=== PATIENT | male | born 1955 | race Caucasian/White ===

== ENCOUNTER 2018-03-17 07:23 | Day surgery (SDC) | payer BC ==
[~2018-03-17] VITALS: Ht 175.3 cm; Wt 81.6 kg
[2018-03-17] VITALS (8 sets, daily range): BP systolic 110–135; BP diastolic 55–95
--- NOTE | 2018-03-17 06:35 | Anethesia Preoperative Eval ---
Anesthesia Pre-op PMH/ROS General Date of Evaluation: Mar 17, 2018 Time of Evaluation: 06:33 Anesthesiologist: ivonne ASA Score: ASA 3 Mallampati Score Class I : Soft palate, uvula, fauces, pillars visible Class II: Soft palate, uvula, fauces visible Class III: Soft palate, base of uvula visible Class IV: Only hard plate visible Mallampati Classification: Class II Surgeon: holden Diagnosis: esophageal cancer Surgical Procedure: eus Anesthesia History: none Social History: current smoker Family History: no anesthesia problems Allergies: Coded Allergies: No Known Allergies (Unverified , 03/17/18) Medications: see eMAR Patient NPO?: Yes Past Medical History Cardiovascular: Reports: HTN Endocrine: Reports: DM Hematology/Immune: Reports: other - cancer Anesthesia Pre-op Phys. Exam Physician Exam Constitutional: NAD Neurologic: CN 2-12 intact Cardiovascular: RRR Gastrointestinal: S/NT/ND Airway Exam Mallampati Score: Class II MO: limited Neck: short TMD: 2fb ROM: limited Anesthesia Pre-op A/P Risk Assessment & Plan Assessment: asa3 Plan: mac Status Change Before Surgery: No Pre-Antibiotics Drug: Daphnie Jacobson MD Mar 17, 2018 06:35
[~2018-03-17 07:23] MED LIST: Atropine Inj 1mg/10ml Syr IV PRN; DiphenhydrAMINE 50mg/ml Inj IVP PRN; Midazolam 2mg/2ml Inj IVP PRN; fentaNYL 100 mcg/2 mL IV PRN
[2018-03-17] MEDS ORDERED: ACTOS15 MG ORAL (07:48)
[2018-03-17] MEDS ORDERED: ASPIR 8181 MG ORAL (07:48)
[2018-03-17] MEDS ORDERED: RANITIDINE HCL150 MG ORAL (07:48)
[2018-03-17] MEDS ORDERED: LISINOPRIL40 MG ORAL (07:48)
[2018-03-17] MEDS ORDERED: FOLIC ACID1 MG ORAL (07:48)
[2018-03-17] MEDS ORDERED: INVOKAMET PO (07:48)
[2018-03-17] MEDS ORDERED: ATORVASTATIN CA40 MG ORAL (07:48)
[2018-03-17] MEDS ORDERED: LANTUS SOL100 UNIT/1 SUBQ (07:49)
[2018-03-17] MEDS ORDERED: Propofol 200mg/20ml IV ONE (09:00)
[2018-03-17] MEDS ORDERED: Lidocaine 1% MPF 10mg/ml 5ml ONE (09:00)
--- NOTE | 2018-03-17 09:01 | Pre-Procedure Note/Attestation ---
Pre-Procedure Note/Attestation Complete Prior to Procedure Planned Procedure: not applicable Procedure Narrative: EGD/EUS Indications for Procedure Pre-Operative Diagnosis: esophageal mass Attestation I attest that I discussed the nature of the procedure; its benefits; risks and complications; and alternatives (and the risks and benefits of such alternatives ), prior to the procedure, with the patient (or the patient's legal sales representative aircraft). I attest that, if there was a reasonable possibility of needing a blood transfusion, the patient (or the patient's legal sales representative aircraft) was given the [facility] standardized written summary, pursuant to the Gordo Valentin Blood Safety Act ([place] Health and Safety Code # 1645, as amended). I attest that I re-evaluated the patient just prior to the surgery and that there has been no change in the patient's H&P, except as documented below: Ramirez Lloyd MD Mar 17, 2018 09:01
--- NOTE | 2018-03-17 09:02 | Short Stay Surgery H&P ---
History of Present Illness History of Present Illness Chief Complaint esophageal mass HPI Elliot Krishnamurthy is a 62 year old male who was admitted on for Esophageal Cancer, Adrenal Carcinoma Patient History Allergies: Coded Allergies: No Known Allergies (Unverified , 03/17/18) Medication History Scheduled Aspirin* (Aspir 81*), 81 MG ORAL DAILY, (Reported) Atorvastatin Calcium* (Atorvastatin Calcium*), 40 MG ORAL BEDTIME, (Reported) Folic Acid* (Folic Acid*), 1 MG ORAL DAILY, (Reported) Insulin Glargine (Lantus), 18 UNITS SUBQ BEDTIME, (Reported) Lisinopril* (Lisinopril*), 40 MG ORAL DAILY, (Reported) Pioglitazone Hcl* (Actos*), 15 MG ORAL DAILY, (Reported) Ranitidine Hcl* (Zantac*), 150 MG ORAL TWICE A DAY, (Reported) [Invokamet], 150 MG PO BID, (Reported) Review of Systems Cardiovascular: Reports: no symptoms Respiratory: Reports: no symptoms Skeletal: Reports: no symptoms Gastrointestinal: Reports: no symptoms Genitourinary: Reports: no symptoms Neurologic: Reports: no symptoms Endocrine: Reports: no symptoms Hematologic: Reports: no symptoms Physical Exam Vital Signs Last Vital Signs Date Time Temp Pulse Resp B/P (MAP) Pulse Ox O2 Delivery O2 Flow Rate FiO2 03/17/18 07:58 97.8 83 18 110/66 99 Room Air Skin: normal HENT: normal Heart: normal Lungs: normal Abdomen: normal Extremities: normal Plan Plan of Care egd/eus Attestation Are the patient's medical conditions optimized for surgery? Attestation Response: yes Ramirez Lloyd MD Mar 17, 2018 09:02
--- NOTE | 2018-03-17 10:27 | Endoscopy Procedure Note ---
Endoscopy Procedure Note General Indication for Procedure: esoph mass Procedures Performed: EGD, other - EUS Operative Findings/Diagnosis: esoph mass Specimen: yes Pt Tolerated Procedure Well: Yes Estimated Blood Loss: none Anesthesia Anesthesiologist: ivonne Anesthesia: MAC Inserted Devices Implant(s) used?: No GI Core Measures 50 yrs or older w/o bx or poly: Not Applicable 10yrs. F/U not recommended: Not Applicable Ramirez Lloyd MD Mar 17, 2018 10:27
--- NOTE | 2018-03-17 10:28 | Immediate Post-Op Evaluation ---
Immediate Post-Op Evalulation Immediate Post-Op Evalulation Procedure: egd/eus Date of Evaluation: Mar 17, 2018 Time of Evaluation: 09:51 IV Fluids: 250ml 0.9ns Blood Products: none Estimated Blood Loss: negligible Blood Pressure Systolic: 135 Blood Pressure Diastolic: 59 Pulse Rate: 81 Respiratory Rate: 18 O2 Sat by Pulse Oximetry: 97 Temperature (Fahrenheit): 97.6 Pain Score (1-10): 0 Nausea: No Vomiting: No Complications none Patient Status: awake, reacts, patent Hydration Status: adequate Drug: Daphnie Jacobson MD Mar 17, 2018 10:28
--- NOTE | 2018-03-17 10:28 | 48 Hour Post Anesthesia Eval ---
Post Anesthesia Evaluation Procedure: egd/eus Date of Evaluation: Mar 17, 2018 Time of Evaluation: 09:54 Blood Pressure Systolic: 115 0: 73 Pulse Rate: 78 Respiratory Rate: 18 Temperature (Fahrenheit): 97.6 O2 Sat by Pulse Oximetry: 97 Airway: patent Nausea: No Vomiting: No Pain Intensity: 0 Hydration Status: adequate Cardiopulmonary Status: stable Mental Status/LOC: patient returned to baseline Post-Anesthesia Complications: none Follow-up care needed: N/A Daphnie Rodriges MD Mar 17, 2018 10:28
--- NOTE | 2018-03-17 17:45 | Procedure Note ---
DATE OF PROCEDURE: 03/17/2018 SURGEON: Ramirez Lloyd M.D. PROCEDURE: Upper endoscopy and endoscopic ultrasound. INDICATION: Esophageal cancer. REASON FOR PROCEDURE: The procedure, risks, benefits, and possible consequences, including hemorrhage, aspiration, perforation and infection, and alternative treatments, were explained to the patient/legal guardian by Dr. Ramirez Lloyd and the patient/legal guardian understood and accepted these risks. DESCRIPTION OF PROCEDURE: After informed consent was obtained and the patient was adequately sedated, Olympus upper endoscope was advanced from mouth into the second portion of the duodenum and retroflexion was performed in the stomach. The patient had a mass starting at about 34 expands to 39 to about 5 cm tumor in the distal esophagus, expanding to the GE junction and below into the cardia of the stomach. At this time, the upper endoscope was retrieved, the EUS scope was introduced. Started scanning below the GE junction. A large mass was seen on the endoscopy. This mass involves the muscularis propria breaks through it and then invade the fat next to it. So, this is T3. There are at least four small lymph nodes, the largest one about 1.1 cm, that is the largest of these four peritumor close to the celiac axis area, but mostly around the tumor area. Given the patient is already T3 and N0, did not lymph nodes, given most likely the patient will need a chemotherapy before surgery. At this time, the scope was gradually removed. SUMMARY OF FINDINGS: 1. A 5 cm mass starting at 34 cm from the esophagus expanding to the GE junction and below it, total of expansion about 5 cm. 2. Based on the EUS criteria, this lesion is T3 with N3. RECOMMENDATIONS: The patient to follow with Dr. Harrison, thoracic surgeon, and Oncology team regarding the plan. Options would be chemoradiation before surgery versus surgical intervention, but we will let that decision to be made by the surgical team and Oncology team. I want to thank Dr. Harrison, for this kind referral. Ramirez Lloyd M.D. DR: SESAR/ANGELIKA JOB#: [id number] CC: Aylin Harrison M.D.
--- NOTE | 2018-03-19 16:39 | Cardiology Report ---
APPROVED REPORT EKG Measurement Heart [id number] Normal sinus rhythm Normal ECG
== END 2018-03-17 10:45 | disposition home or self-care (01) ==
LOC: GAS 07:23
DX: C15.9 Malignant neoplasm of esophagus, unspecified (principal); I10 Essential (primary) hypertension; E11.9 Type 2 diabetes mellitus without complications; F17.200 Nicotine dependence, unspecified, uncomplicated; Z79.82 Long term (current) use of aspirin
CPT/HCPCS: 43237; 82962; 93005; J2704; 94003; 94150